=== PATIENT | female | born 1935 | race Caucasian/White ===

== ENCOUNTER 2023-01-28 14:44 | Observation (INO) | payer MEDICARE ==
[~2023-01-28] VITALS: Ht 160 cm; Wt 69.0 kg
[~2023-01-28 14:44] MED LIST: ALBU18HF2 INH; AMLO10TA14 PO; ASCO-139 PO; ASPI-611 PO; BETA1TAB20 PO; CRAN500C4 PO; DOCU100C40 PO; DULO60CA65 PO; ERGO500041 PO; FERR325T32 PO; FLUT1BLS4 IH; FURO40TA4 PO; HYDR-4069 PO; IPRA3AMP31 IH; LEVO150T8 PO; LORA-269 PO; LORA10TA7 PO; MELA10TA3 PO; METO50TA17 PO; MONT-47 PO; MULT-1085 PO; OMEG1CAP46 PO; POTA8TAB69 PO; PRAV40TA3 PO; PRED10TA PO; ZINC50CA2 PO
[2023-01-28 15:22] LABS: ALANINE AMINOTRANSFERASE 26 U/L (12-78); ALBUMIN 2.4 G/DL (3.4-5.0); ALBUMIN/GLOBULIN RATIO 0.5 (1.1-1.5); ALKALINE PHOSPHATASE 60 IU/L (46-116); ANION GAP 10 (8-16); ASPARTATE AMINO TRANSFERASE 40 U/L (10-37); BILIRUBIN,TOTAL 0.6 MG/DL (0.1-1.0); BLOOD UREA NITROGEN 50 MG/DL (7-18); BUN/CREATININE RATIO 16.8 (10.0-20.0); CALCIUM 9.1 MG/DL (8.5-10.1); CHLORIDE 100 MMOL/L (99-107); CREATININE 2.97 MG/DL (0.40-0.90); GLUCOSE 109 MG/DL (70-104); POTASSIUM 3.9 MMOL/L (3.5-5.1); SODIUM 134 MMOL/L (135-145); eCRCL 11 ML/MIN; eGFR 15 ML/MIN
[2023-01-28 15:26] LABS: BASOPHILS # (AUTO) 0.1 X10'3 (0-0.2); BASOPHILS % (AUTO) 0.9 % (0-1); EOSINOPHILS # (AUTO) 0.1 X10'3 (0-0.9); EOSINOPHILS % (AUTO) 0.9 % (0-6); HEMATOCRIT 25.8 % (35.0-45.0); HEMOGLOBIN 8.6 g/dl (12.0-16.0); LYMPHOCYTES # (AUTO) 1.7 X10'3 (1.1-4.8); LYMPHOCYTES % (AUTO) 18.1 % (21-51); MEAN CORPUSCULAR HEMOGLOBIN 32.9 PG (27.0-31.0); MEAN CORPUSCULAR HGB CONC 33.2 g/dL (33.0-36.5); MEAN CORPUSCULAR VOLUME 99.3 FL (78-98); MONOCYTES # (AUTO) 0.9 X10'3 (0-0.9); MONOCYTES % (AUTO) 9.7 % (2-12); NEUTROPHILS # (AUTO) 6.6 X10'3 (1.8-7.7); NEUTROPHILS % (AUTO) 70.4 % (42-75); PLATELET COUNT 284 X10'3 (140-440); RED CELL DISTRIBUTION WIDTH 16.6 % (11.5-14.5); WHITE BLOOD COUNT 9.3 X10'3 (4.5-11.0)
[2023-01-28 15:31] LABS: PRO BRAIN NATRIURETIC PEPTIDE > 30000 PG/ML (0-450)
[2023-01-28 18:24] LABS: BILIRUBIN,URINE NEGATIVE (Neg); CLARITY,URINE CLEAR (Clear); COLOR,URINE YELLOW (Yellow); GLUCOSE, URINE NEGATIVE (Neg); KETONES,URINE NEGATIVE (Neg); LEUKOCYTE ESTERASE ,URINE NEGATIVE (Neg); NITRITES, URINE NEGATIVE (Neg); OCCULT BLOOD,URINE TRACE-INTACT (Neg); PH,URINE 5.5 (4.8-8.0); PROTEIN,URINE >=300 mg/dl (Neg); UROBILINOGEN,URINE 0.2 E.U/dL (0.2-1.0)
[2023-01-28] MEDS ORDERED: albuterol 2.5 MG/3 ML nebule NEB ONE (18:25)
[2023-01-28] MEDS ORDERED: methylPREDNISolone sod succ 125mg/2ml vial IV ONE (18:25)
[2023-01-28 18:26] LABS: UA COLLECTION TYPE CLN CATCH MIDSTREAM
[2023-01-28 18:33] LABS: WBC,URINE 0-4 /HPF (0-4)
[2023-01-28 18:34] LABS: BACTERIA,URINE NONE SEEN /HPF (Neg); SQUAMOUS EPITHELIAL CELL,UR FEW /LPF (FEW)
[2023-01-28 18:49] VITALS: PULSE 54; RESP 18; O2SAT 93
[2023-01-28 18:55] VITALS: PULSE 55; RESP 16
[2023-01-28] MEDS ORDERED: furosemide 10 MG/1 ML 10ml inj IV ONE (19:25)
[2023-01-28] MEDS ORDERED: nitroGLYCERIN 0.2mg/hour patch TD ONE (19:50)
[2023-01-28] MEDS ORDERED: potassium Cl 20 mEq SR tablet PO PRN ×2 (20:10)
[2023-01-28] MEDS ORDERED: acetaminophen 325mg tablet PO PRN (20:10)
[2023-01-28] MEDS ORDERED: ondansetron/PF 4mg/2ml inj IV PRN (20:10)
[2023-01-28] MEDS ORDERED: potassium Cl 40MEQ/1/2NS 520ml 520 ML IV PRN (20:10)
[2023-01-28] MEDS ORDERED: albuterol 2.5 MG/3 ML nebule NEB PRN (20:10)
[2023-01-28] MEDS ORDERED: mag hydrox/Alum hydrox/simeth 30ml oral suspension PO PRN (20:10)
[2023-01-28] MEDS ORDERED: magnesium 4gm in 100ml NS 100 ML IV PRN (20:10)
--- NOTE | 2023-01-28 20:48 | NUR ---
PATIENT HAD IV LASIX PURE WICK PLACED FOR COMFORT
--- NOTE | 2023-01-28 23:11 | NUR ---
patient placed on hospital bed has no needs from rn at this time
[2023-01-28] MEDS: ipratropium/albuterol 3ml nebule NEB PRN (23:29)
[2023-01-28 23:31] VITALS: PULSE 60; RESP 18; O2SAT 95
[2023-01-28 23:38] VITALS: PULSE 59; RESP 16
[2023-01-29] VITALS (11 sets, daily range): BP systolic 126–181; BP diastolic 47–71; PULSE 65–93; RESP 10–21; TEMP 97.5–98.8; O2SAT 92–96
--- NOTE | 2023-01-29 04:19 | NUR ---
patient supine covers on in bed eyes closed rr even un labored no observable respiratory distress at this time
[2023-01-29] MEDS: budesonide 0.5mg/2ml UD nebule IH SCH ×2 (07:35→20:00)
[2023-01-29] MEDS: ipratropium/albuterol 3ml nebule NEB PRN (07:35)
[2023-01-29 07:56] LABS: BASOPHILS % (AUTO) 0.1 % (0-1); EOSINOPHILS % (AUTO) 0.1 % (0-6); LYMPHOCYTES # (AUTO) 0.8 X10'3 (1.1-4.8); LYMPHOCYTES % (AUTO) 15.7 % (21-51); MEAN CORPUSCULAR HGB CONC 32.1 g/dL (33.0-36.5); MEAN PLATELET VOLUME 8.6 FL (7.4-10.4); MONOCYTES # (AUTO) 0.3 X10'3 (0-0.9); MONOCYTES % (AUTO) 6.3 % (2-12); NEUTROPHILS % (AUTO) 77.8 % (42-75); RED CELL DISTRIBUTION WIDTH 17.5 % (11.5-14.5)
[2023-01-29 07:59] LABS: ALANINE AMINOTRANSFERASE 27 U/L (12-78); ALBUMIN 2.3 G/DL (3.4-5.0); ALBUMIN/GLOBULIN RATIO 0.6 (1.1-1.5); ALKALINE PHOSPHATASE 56 IU/L (46-116); ANION GAP 14 (8-16); ASPARTATE AMINO TRANSFERASE 34 U/L (10-37); BILIRUBIN,TOTAL 0.5 MG/DL (0.1-1.0); BLOOD UREA NITROGEN 54 MG/DL (7-18); BUN/CREATININE RATIO 17.4 (10.0-20.0); CALCIUM 8.7 MG/DL (8.5-10.1); CHLORIDE 103 MMOL/L (99-107); CREATININE 3.11 MG/DL (0.40-0.90); GLUCOSE 128 MG/DL (70-104); MAGNESIUM 2.5 MG/DL (1.5-2.4); POTASSIUM 3.8 MMOL/L (3.5-5.1); SODIUM 137 MMOL/L (135-145); TOTAL CARBON DIOXIDE 20.2 MMOL/L (24-32); TOTAL PROTEIN 6.2 G/DL (6.4-8.2); eCRCL 11 ML/MIN; eGFR 14 ML/MIN
[2023-01-29] MEDS: K and/or MAG REPLACEMENT MC SCH ×2 (08:00→20:00)
[2023-01-29] MEDS: docusate sod 100mg capsule PO SCH ×2 (08:00→20:00)
[2023-01-29 08:23] LABS: HEMATOCRIT 24.7 % (35.0-45.0); HEMOGLOBIN 7.9 g/dl (12.0-16.0); MEAN CORPUSCULAR HEMOGLOBIN 31.5 PG (27.0-31.0); MEAN CORPUSCULAR VOLUME 98.2 FL (78-98); PLATELET COUNT 262 X10'3 (140-440); RED BLOOD COUNT 2.52 X10'6 (4.20-5.60); WHITE BLOOD COUNT 5.8 X10'3 (4.5-11.0)
[2023-01-29] MEDS ORDERED: ipratropium/albuterol 3ml nebule IH PRN (10:00)
[2023-01-29] MEDS ORDERED: LISI20TA28 PO (13:57)
[2023-01-29] MEDS: furosemide 40mg/4ml inj IV SCH ×2 (15:25→20:15)
[2023-01-29] MEDS: hyDRALAzine 10mg tablet PO SCH (15:25)
--- NOTE | 2023-01-29 18:29 | NUR ---
Problems reprioritized. Patient report given, questions answered & plan of care reviewed with Gladys Larios RN.
--- NOTE | 2023-01-29 18:30 | NUR ---
Patient in room PCU 3018. I have received report from MORENO ZHAO and had the opportunity to ask questions and assume patient care.
[2023-01-29] MEDS ORDERED: enoxaparin 30mg/0.3ml syringe SQ SCH (20:00)
[2023-01-29] MEDS: metoprolol tartrate 50mg tablet PO SCH (20:14)
[2023-01-30] VITALS (12 sets, daily range): BP systolic 124–181; BP diastolic 55–91; PULSE 60–113; RESP 16–22; TEMP 97–98.7; O2SAT 92–98
--- NOTE | 2023-01-30 00:25 | NUR ---
PAGER ID: [phone] MESSAGE TO : MALIA DOVER [id number],PT WENT INTO AFIB. ECG DONE. MAGDIEL ORTEGA [id number] Addendum: 01/30/23 at 0038 by Magdiel Hernandez RN NO NEW ORDER AT THIS TIME.
[2023-01-30] MEDS: hyDRALAzine 10mg tablet PO SCH ×3 (04:08→16:08)
--- NOTE | 2023-01-30 07:10 | NUR ---
Patient in room PCU 3018. I have received report from MORENO Wade and had the opportunity to ask questions and assume patient care.
[2023-01-30 07:30] LABS: BASOPHILS # (AUTO) 0.1 X10'3 (0-0.2); BASOPHILS % (AUTO) 0.7 % (0-1); EOSINOPHILS # (AUTO) 0.2 X10'3 (0-0.9); EOSINOPHILS % (AUTO) 2.7 % (0-6); HEMATOCRIT 25.6 % (35.0-45.0); HEMOGLOBIN 8.6 g/dl (12.0-16.0); LYMPHOCYTES # (AUTO) 1.7 X10'3 (1.1-4.8); LYMPHOCYTES % (AUTO) 18.5 % (21-51); MEAN CORPUSCULAR HEMOGLOBIN 33.4 PG (27.0-31.0); MEAN CORPUSCULAR HGB CONC 33.6 g/dL (33.0-36.5); MEAN CORPUSCULAR VOLUME 99.4 FL (78-98); MEAN PLATELET VOLUME 8.7 FL (7.4-10.4); MONOCYTES # (AUTO) 0.8 X10'3 (0-0.9); NEUTROPHILS # (AUTO) 6.2 X10'3 (1.8-7.7); NEUTROPHILS % (AUTO) 69.1 % (42-75); PLATELET COUNT 298 X10'3 (140-440); RED BLOOD COUNT 2.58 X10'6 (4.20-5.60); RED CELL DISTRIBUTION WIDTH 16.7 % (11.5-14.5)
[2023-01-30 07:47] LABS: ALANINE AMINOTRANSFERASE 26 U/L (12-78); ALBUMIN 2.2 G/DL (3.4-5.0); ALBUMIN/GLOBULIN RATIO 0.5 (1.1-1.5); ALKALINE PHOSPHATASE 54 IU/L (46-116); ANION GAP 10 (8-16); ASPARTATE AMINO TRANSFERASE 30 U/L (10-37); BILIRUBIN,TOTAL 0.5 MG/DL (0.1-1.0); BLOOD UREA NITROGEN 59 MG/DL (7-18); BUN/CREATININE RATIO 18.6 (10.0-20.0); CALCIUM 8.9 MG/DL (8.5-10.1); CHLORIDE 103 MMOL/L (99-107); CREATININE 3.17 MG/DL (0.40-0.90); GLUCOSE 88 MG/DL (70-104); MAGNESIUM 2.3 MG/DL (1.5-2.4); POTASSIUM 3.6 MMOL/L (3.5-5.1); SODIUM 138 MMOL/L (135-145); TOTAL CARBON DIOXIDE 25.3 MMOL/L (24-32); TOTAL PROTEIN 6.6 G/DL (6.4-8.2); eCRCL 11 ML/MIN; eGFR 14 ML/MIN
[2023-01-30] MEDS: budesonide 0.5mg/2ml UD nebule IH SCH ×2 (07:54→19:48)
[2023-01-30] MEDS: K and/or MAG REPLACEMENT MC SCH ×2 (08:00→20:00)
[2023-01-30] MEDS ORDERED: Melatonin 3mg tablet PO PRN ×2 (08:40→09:50)
[2023-01-30] MEDS: furosemide 40mg/4ml inj IV SCH ×2 (09:41→20:09)
[2023-01-30] MEDS: ferrous sulfate 325mg tablet PO SCH (09:46)
[2023-01-30] MEDS: apixaban 2.5mg tablet PO SCH ×2 (09:47→20:34)
[2023-01-30] MEDS: levoTHYROXINE 75mcg tablet PO SCH (09:47)
[2023-01-30] MEDS: pravastatin 40mg tablet PO SCH (09:47)
[2023-01-30] MEDS: metoprolol tartrate 50mg tablet PO SCH ×2 (09:47→20:35)
[2023-01-30] MEDS: aspirin 81mg, enteric-coated 1 TAB TABLET.DR PO SCH (09:48)
[2023-01-30] MEDS: montelukast 10mg tablet PO SCH (09:48)
[2023-01-30] MEDS: amLODIPine 5mg tablet PO SCH (09:49)
[2023-01-30] MEDS ORDERED: docusate sod 100mg capsule PO PRN (09:50)
--- NOTE | 2023-01-30 19:00 | NUR ---
Problems reprioritized. Patient report given, questions answered & plan of care reviewed with BRANDON Pollock & MORENO Delgado.
[2023-01-30] MEDS: ipratropium 0.5 MG/2.5ML nebule IH SCH (19:48)
[2023-01-30] MEDS: simethicone 80mg chew tab PO SCH (21:46)
[2023-01-31] VITALS (8 sets, daily range): BP systolic 99–158; BP diastolic 66–81; PULSE 54–96; RESP 15–19; TEMP 97.1–98; O2SAT 93–97
[2023-01-31] MEDS: hyDRALAzine 10mg tablet PO SCH ×3 (00:21→15:36)
--- NOTE | 2023-01-31 06:30 | NUR ---
Patient in room PCU 3018. I have received report from BRANDON Pollock & MORENO Delgado and had the opportunity to ask questions and assume patient care.
[2023-01-31] MEDS: amLODIPine 5mg tablet PO SCH (07:18)
[2023-01-31] MEDS: metoprolol tartrate 50mg tablet PO SCH (07:18)
[2023-01-31] MEDS: furosemide 40mg/4ml inj IV SCH (07:18)
[2023-01-31] MEDS: K and/or MAG REPLACEMENT MC SCH (08:00)
[2023-01-31 08:01] LABS: BASOPHILS # (AUTO) 0.1 X10'3 (0-0.2); BASOPHILS % (AUTO) 0.8 % (0-1); EOSINOPHILS # (AUTO) 0.3 X10'3 (0-0.9); EOSINOPHILS % (AUTO) 2.9 % (0-6); HEMATOCRIT 29.7 % (35.0-45.0); HEMOGLOBIN 10.1 g/dl (12.0-16.0); LYMPHOCYTES # (AUTO) 1.9 X10'3 (1.1-4.8); LYMPHOCYTES % (AUTO) 20.9 % (21-51); MEAN CORPUSCULAR HEMOGLOBIN 33.5 PG (27.0-31.0); MEAN CORPUSCULAR HGB CONC 33.8 g/dL (33.0-36.5); MEAN CORPUSCULAR VOLUME 99.1 FL (78-98); MEAN PLATELET VOLUME 8.4 FL (7.4-10.4); MONOCYTES # (AUTO) 0.8 X10'3 (0-0.9); MONOCYTES % (AUTO) 8.8 % (2-12); NEUTROPHILS % (AUTO) 66.6 % (42-75); PLATELET COUNT 372 X10'3 (140-440); RED CELL DISTRIBUTION WIDTH 16.8 % (11.5-14.5)
[2023-01-31] MEDS: ipratropium 0.5 MG/2.5ML nebule IH SCH (08:12)
[2023-01-31] MEDS: budesonide 0.5mg/2ml UD nebule IH SCH (08:12)
[2023-01-31 08:29] LABS: ALANINE AMINOTRANSFERASE 24 U/L (12-78); ALBUMIN 2.3 G/DL (3.4-5.0); ALBUMIN/GLOBULIN RATIO 0.5 (1.1-1.5); ALKALINE PHOSPHATASE 62 IU/L (46-116); ANION GAP 10 (8-16); ASPARTATE AMINO TRANSFERASE 31 U/L (10-37); BILIRUBIN,TOTAL 0.6 MG/DL (0.1-1.0); BLOOD UREA NITROGEN 58 MG/DL (7-18); BUN/CREATININE RATIO 17.4 (10.0-20.0); CHLORIDE 100 MMOL/L (99-107); CREATININE 3.34 MG/DL (0.40-0.90); FREE T4 (FREE THYROXINE) 1.07 NG/DL (0.73-1.40); GLUCOSE 90 MG/DL (70-104); MAGNESIUM 2.2 MG/DL (1.5-2.4); POTASSIUM 3.6 MMOL/L (3.5-5.1); SODIUM 137 MMOL/L (135-145); THYROID STIMULATING HORMONE 25.04 ulU/ml (0.34-4.50); TOTAL CARBON DIOXIDE 26.7 MMOL/L (24-32); TOTAL PROTEIN 7.4 G/DL (6.4-8.2); eCRCL 10 ML/MIN; eGFR 13 ML/MIN
[2023-01-31 09:21] LABS: RHEUM FACTOR QUAL REFLEX TITER NEGATIVE (Neg)
[2023-01-31] MEDS: ferrous sulfate 325mg tablet PO SCH (10:38)
[2023-01-31] MEDS: aspirin 81mg, enteric-coated 1 TAB TABLET.DR PO SCH (10:39)
[2023-01-31] MEDS: levoTHYROXINE 75mcg tablet PO SCH (10:39)
[2023-01-31] MEDS: pravastatin 40mg tablet PO SCH (10:39)
[2023-01-31] MEDS: montelukast 10mg tablet PO SCH (10:39)
[2023-01-31] MEDS: apixaban 2.5mg tablet PO SCH (10:39)
[2023-01-31] MEDS: simethicone 80mg chew tab PO SCH ×2 (10:43→13:56)
[2023-01-31] MEDS ORDERED: FURO40TA4 PO (13:08)
--- NOTE | 2023-01-31 16:30 | NUR ---
DC inst provided to pt. IV DC'd, tip intact. All belongings sent w/pt. WC to vehicle.
[2023-02-02 15:48] LABS: ANTINUCLEAR ANTIBODIES Negative (Negative); COMPLEMENT C3, SERUM 221 mg/dL (82-167); COMPLEMENT C4, SERUM 32 mg/dL (12-38)
[2023-02-03 09:47] LABS: A/G RATIO 0.6 (0.7-1.7); ALBUMIN 2.6 g/dL (2.9-4.4); ALPHA-1-GLOBULIN 0.4 g/dL (0.0-0.4); ALPHA-2-GLOBULIN 1.4 g/dL (0.4-1.0); GAMMA GLOBULIN 1.5 g/dL (0.4-1.8); GLOBULIN, TOTAL 4.2 g/dL (2.2-3.9); HBSAG SCREEN Negative (Negative); M-SPIKE 0.4 g/dL (Not Observed); PROTEIN, TOTAL, SERUM 6.8 g/dL (6.0-8.5)
== END 2023-01-31 16:30 | disposition home health service (06) ==
LOC: ER 14:46 → ED HOLD 20:17 → INTOOBSV 20:17 → PCU 3S 01-29 07:25
PROVIDERS: ADMIT Family Medicine; ATTEND Internal Medicine
DX: J44.1 Chronic obstructive pulmonary disease with (acute) exacerbation (principal); J96.01 Acute respiratory failure with hypoxia; I13.0 Hypertensive heart and chronic kidney disease with heart failure and stage 1 through stage 4 chronic kidney disease, or unspecified chronic kidney disease; I50.32 Chronic diastolic (congestive) heart failure; N18.4 Chronic kidney disease, stage 4 (severe); D63.1 Anemia in chronic kidney disease; E78.5 Hyperlipidemia, unspecified; E87.6 Hypokalemia; E87.1 Hypo-osmolality and hyponatremia; H53.2 Diplopia; R31.29 Other microscopic hematuria; I27.20 Pulmonary hypertension, unspecified; Z96.652 Presence of left artificial knee joint; Z86.16 Personal history of COVID-19; Z90.710 Acquired absence of both cervix and uterus; Z93.3 Colostomy status; Z79.899 Other long term (current) drug therapy
CPT/HCPCS: 36415; 71045; 71250; 80053; 81001; 83735; 83880; 84155; 84165; 84439; 84443; 84484; 85025; 85651; 86038; 86160; 86430; 87081; 87340; 93005; 93975; 94640; 94760; 96372; 96374; 96375; 96376; 97161; 97530; 99285; G0378; J1650; J1940; J2930; A4615

== ENCOUNTER 2023-03-30 08:49 | Inpatient (IN) | payer MEDICARE ==
[~2023-03-30] VITALS: Ht 162.6 cm; Wt 68.2 kg
[2023-03-30] VITALS (8 sets, daily range): BP systolic 161–178; BP diastolic 51–64; PULSE 58–64; RESP 14–22; TEMP 97.6–99.3; O2SAT 90–95
[~2023-03-30 08:49] MED LIST changes: -AMLO10TA14 PO; -BETA1TAB20 PO; -FLUT1BLS4 IH; +LISI20TA28 PO; -LORA-269 PO; -LORA10TA7 PO; -POTA8TAB69 PO; -PRED10TA PO
[2023-03-30 09:39] LABS: BASOPHILS # (AUTO) 0.1 X10'3 (0-0.2); BASOPHILS % (AUTO) 0.6 % (0-1); EOSINOPHILS # (AUTO) 0.1 X10'3 (0-0.9); EOSINOPHILS % (AUTO) 1.2 % (0-6); HEMATOCRIT 24.5 % (35.0-45.0); HEMOGLOBIN 8.1 g/dl (12.0-16.0); LYMPHOCYTES # (AUTO) 0.8 X10'3 (1.1-4.8); LYMPHOCYTES % (AUTO) 8.4 % (21-51); MEAN CORPUSCULAR HEMOGLOBIN 34.8 PG (27.0-31.0); MEAN CORPUSCULAR HGB CONC 33.3 g/dL (33.0-36.5); MEAN CORPUSCULAR VOLUME 104.6 FL (78-98); MEAN PLATELET VOLUME 8.2 FL (7.4-10.4); MONOCYTES % (AUTO) 9.8 % (2-12); NEUTROPHILS # (AUTO) 7.8 X10'3 (1.8-7.7); PLATELET COUNT 291 X10'3 (140-440); RED BLOOD COUNT 2.34 X10'6 (4.20-5.60); RED CELL DISTRIBUTION WIDTH 14.7 % (11.5-14.5); WHITE BLOOD COUNT 9.7 X10'3 (4.5-11.0)
[2023-03-30] MEDS ORDERED: ipratropium/albuterol 3ml nebule NEB ONE (09:45)
[2023-03-30 09:55] LABS: ALANINE AMINOTRANSFERASE 23 U/L (12-78); ALBUMIN 2.5 G/DL (3.4-5.0); ALBUMIN/GLOBULIN RATIO 0.5 (1.1-1.5); ALKALINE PHOSPHATASE 64 IU/L (46-116); ANION GAP 10 (8-16); ASPARTATE AMINO TRANSFERASE 34 U/L (10-37); BILIRUBIN,TOTAL 0.5 MG/DL (0.1-1.0); BLOOD UREA NITROGEN 54 MG/DL (7-18); BUN/CREATININE RATIO 14.8 (10.0-20.0); CALCIUM 9.3 MG/DL (8.5-10.1); CHLORIDE 102 MMOL/L (99-107); CREATININE 3.64 MG/DL (0.40-0.90); GLUCOSE 106 MG/DL (70-104); SODIUM 138 MMOL/L (135-145); TOTAL CARBON DIOXIDE 26.5 MMOL/L (24-32); TOTAL PROTEIN 7.2 G/DL (6.4-8.2); eCRCL 10 ML/MIN; eGFR 12 ML/MIN
[2023-03-30 10:02] LABS: PRO BRAIN NATRIURETIC PEPTIDE 26304 PG/ML (0-450)
[2023-03-30 10:03] LABS: POTASSIUM 4.1 MMOL/L (3.5-5.1)
[2023-03-30 10:17] LABS: BILIRUBIN,URINE NEGATIVE (Neg); CLARITY,URINE CLEAR (Clear); COLOR,URINE STRAW (Yellow); GLUCOSE, URINE NEGATIVE (Neg); KETONES,URINE NEGATIVE (Neg); LEUKOCYTE ESTERASE ,URINE NEGATIVE (Neg); NITRITES, URINE NEGATIVE (Neg); OCCULT BLOOD,URINE TRACE-INTACT (Neg); PH,URINE 7.5 (4.8-8.0); PROTEIN,URINE 100 mg/dl (Neg); UROBILINOGEN,URINE 0.2 E.U/dL (0.2-1.0)
[2023-03-30 10:25] LABS: UA COLLECTION TYPE CLN CATCH MIDSTREAM
[2023-03-30 10:35] LABS: BACTERIA,URINE NONE SEEN /HPF (Neg); RBC,URINE 0-2 /HPF (0-2); SQUAMOUS EPITHELIAL CELL,UR FEW /LPF (FEW); TRANSITIONAL EPI CELLS,URINE FEW /HPF; WBC,URINE 0-4 /HPF (0-4)
[2023-03-30] MEDS ORDERED: furosemide 10 MG/1 ML 10ml inj IV ONE (11:05)
[2023-03-30 11:20] LABS: LIPASE 28 U/L (16-77)
[2023-03-30] MEDS ORDERED: GEMF600T89 PO (11:33)
[2023-03-30] MEDS ORDERED: FENO145T38 PO (11:33)
--- NOTE | 2023-03-30 11:45 | NUR ---
Hospitalist at bedside with patient.
[2023-03-30] MEDS ORDERED: magnesium 4gm in 100ml NS 100 ML IV PRN (11:55)
[2023-03-30] MEDS ORDERED: potassium Cl 40MEQ/1/2NS 520ml 520 ML IV PRN (11:55)
[2023-03-30] MEDS ORDERED: acetaminophen 325mg tablet PO PRN (11:55)
[2023-03-30] MEDS ORDERED: PERFLUTREN PROTEIN-A MICROSPHR (Optison) 0.22 MG/ML 3ML VIAL IV ONE (11:55)
[2023-03-30] MEDS ORDERED: potassium Cl 20 mEq SR tablet PO PRN ×2 (11:55)
[2023-03-30] MEDS ORDERED: ondansetron/PF 4mg/2ml inj IV PRN (11:55)
[2023-03-30] MEDS ORDERED: mag hydrox/Alum hydrox/simeth 30ml oral suspension PO PRN (11:55)
[2023-03-30] MEDS ORDERED: ergocalciferol (vit D2) capsule 50,000 UNITS (1,250mcg) CAPSULE PO SCH (11:55)
[2023-03-30] MEDS ORDERED: magnesium hydroxide 30ml (MOM) UD suspension PO PRN (11:55)
[2023-03-30] MEDS ORDERED: ipratropium/albuterol 3ml nebule IH PRN (11:55)
[2023-03-30] MEDS ORDERED: magnesium Cl slow-release 64mg tablet PO PRN (11:55)
--- NOTE | 2023-03-30 12:00 | NUR ---
Patient up to bedside commode, steady. SOB after exertion. 200mL urine out.
[2023-03-30] MEDS ORDERED: AMLO10TA13 PO (12:47)
[2023-03-30] MEDS ORDERED: POTA8TAB69 PO (12:47)
[2023-03-30] MEDS ORDERED: FLUT1BLS4 IH (12:47)
[2023-03-30] MEDS ORDERED: VIT1CAPS46 PO (12:47)
[2023-03-30] MEDS ORDERED: LORA10TA7 PO (12:47)
[2023-03-30] MEDS ORDERED: FLUT16SP11 BOTHNARES (12:47)
[2023-03-30] MEDS: fenofibrate 145mg tablet PO SCH ×2 (13:00→19:38)
--- NOTE | 2023-03-30 13:27 | NUR ---
Patient in room PCU 3015B. I have received report from MORENO CERNA and had the opportunity to ask questions and assume patient care.
--- NOTE | 2023-03-30 18:18 | NUR ---
Problems reprioritized. Patient report given, questions answered & plan of care reviewed with BRANDON AUGUSTINE.
[2023-03-30] MEDS: docusate sod 100mg capsule PO SCH (19:36)
[2023-03-30] MEDS: metoprolol tartrate 50mg tablet PO SCH (19:38)
[2023-03-30] MEDS: heparin, porcine 5000 units/ml vial SQ SCH (19:39)
[2023-03-30] MEDS ORDERED: ipratropium/albuterol 3ml nebule NEB PRN (20:10)
[2023-03-30] MEDS ORDERED: NYSTATIN 30 GM POWDER TP SCH (21:00)
[2023-03-30] MEDS: temazepam 15mg capsule PO PRN (22:04)
[2023-03-30] MEDS: nystatin 15 GM powder TP SCH (22:04)
[2023-03-31] VITALS (9 sets, daily range): BP systolic 150–162; BP diastolic 51–80; PULSE 58–63; RESP 13–18; TEMP 98–98.4; O2SAT 93–98
--- NOTE | 2023-03-31 03:29 | NUR ---
LEAFLET OR NEWSPAPER DELIVERER documentation: I have reviewed and agree with all interventions, assessments performed and documented by HELEN TAYLOR.
--- NOTE | 2023-03-31 06:33 | NUR ---
Patient in room PCU 3015. I have received report from MORENO Edmonds and had the opportunity to ask questions and assume patient care.
[2023-03-31 06:51] LABS: BASOPHILS # (AUTO) 0.1 X10'3 (0-0.2); BASOPHILS % (AUTO) 0.8 % (0-1); EOSINOPHILS # (AUTO) 0.1 X10'3 (0-0.9); EOSINOPHILS % (AUTO) 1.8 % (0-6); HEMATOCRIT 23.4 % (35.0-45.0); HEMOGLOBIN 7.9 g/dl (12.0-16.0); LYMPHOCYTES % (AUTO) 12.9 % (21-51); MEAN CORPUSCULAR HEMOGLOBIN 35.1 PG (27.0-31.0); MEAN CORPUSCULAR HGB CONC 33.6 g/dL (33.0-36.5); MEAN CORPUSCULAR VOLUME 104.6 FL (78-98); MEAN PLATELET VOLUME 8.5 FL (7.4-10.4); MONOCYTES # (AUTO) 0.9 X10'3 (0-0.9); NEUTROPHILS % (AUTO) 73.5 % (42-75); PLATELET COUNT 280 X10'3 (140-440); RED BLOOD COUNT 2.24 X10'6 (4.20-5.60); RED CELL DISTRIBUTION WIDTH 14.7 % (11.5-14.5); WHITE BLOOD COUNT 8.1 X10'3 (4.5-11.0)
[2023-03-31] MEDS: lisinopril 20mg tablet PO SCH (07:36)
[2023-03-31] MEDS: pravastatin 40mg tablet PO SCH (07:37)
[2023-03-31] MEDS: ascorbic acid 500mg tablet PO SCH (07:37)
[2023-03-31] MEDS: multivitamins, therapeutics tablet PO SCH (07:37)
[2023-03-31] MEDS: gemfibrozil 600mg tablet PO SCH (07:37)
[2023-03-31] MEDS: OMEGA-3/DHA/EPA/FISH OIL 1 EACH CAPSULE.DR PO SCH (07:37)
[2023-03-31] MEDS: aspirin 81mg, enteric-coated 1 TAB TABLET.DR PO SCH (07:37)
[2023-03-31] MEDS: metoprolol tartrate 50mg tablet PO SCH ×2 (07:38→19:12)
[2023-03-31] MEDS: docusate sod 100mg capsule PO SCH ×2 (07:38→19:12)
[2023-03-31 07:39] LABS: ALANINE AMINOTRANSFERASE 18 U/L (12-78); ALBUMIN 2.2 G/DL (3.4-5.0); ALBUMIN/GLOBULIN RATIO 0.5 (1.1-1.5); ALKALINE PHOSPHATASE 46 IU/L (46-116); ANION GAP 10 (8-16); ASPARTATE AMINO TRANSFERASE 23 U/L (10-37); BILIRUBIN,TOTAL 0.7 MG/DL (0.1-1.0); BLOOD UREA NITROGEN 49 MG/DL (7-18); CALCIUM 9.1 MG/DL (8.5-10.1); CHLORIDE 103 MMOL/L (99-107); GLUCOSE 88 MG/DL (70-104); MAGNESIUM 2.4 MG/DL (1.5-2.4); PHOSPHORUS 3.8 MG/DL (2.3-4.5); POTASSIUM 3.7 MMOL/L (3.5-5.1); SODIUM 136 MMOL/L (135-145); TOTAL CARBON DIOXIDE 23.2 MMOL/L (24-32); TOTAL PROTEIN 6.7 G/DL (6.4-8.2); eCRCL 10 ML/MIN; eGFR 12 ML/MIN
[2023-03-31] MEDS: heparin, porcine 5000 units/ml vial SQ SCH ×2 (07:39→19:13)
[2023-03-31] MEDS: levoTHYROXINE 75mcg tablet PO SCH (07:40)
[2023-03-31] MEDS: fenofibrate 145mg tablet PO SCH ×3 (07:42→18:07)
[2023-03-31] MEDS ORDERED: non-formulary drug (Cranberry Extract (Cranberry) 1 CAP) PO SCH (08:00)
[2023-03-31] MEDS ORDERED: Fluticasone/Umeclidin/Vilanter (Trelegy Ellipta 100-62.5-25) IH SCH (08:00)
[2023-03-31] MEDS ORDERED: non-formulary drug (Zinc Acetate (Galzin) 1 CAP) PO SCH (08:00)
[2023-03-31] MEDS ORDERED: furosemide 40mg/4ml inj IV SCH (08:00)
[2023-03-31] MEDS: nystatin 15 GM powder TP SCH ×3 (09:47→19:13)
[2023-03-31] MEDS: duloxetine 30mg CAPSULE.DR PO SCH (11:03)
[2023-03-31] MEDS ORDERED: BUDE10.7 PO (11:28)
--- NOTE | 2023-03-31 13:06 | NUR ---
Student documentation: I have reviewed and agree with assessment performed and documented by LIZETTE FLEMING .
--- NOTE | 2023-03-31 18:16 | NUR ---
Problems reprioritized. Patient report given, questions answered & plan of care reviewed with Grey MAYER.
[2023-03-31] MEDS: temazepam 15mg capsule PO PRN (20:56)
[2023-03-31] MEDS: furosemide 40mg/4ml inj IV SCH (21:40)
[2023-04-01] VITALS: BP 108/86; PULSE 57; RESP 16; TEMP 97; O2SAT 92
[2023-04-01 07:00] VITALS: BP 163/75; PULSE 59; RESP 19; TEMP 97.7; O2SAT 92
[2023-04-01] MEDS: gemfibrozil 600mg tablet PO SCH (07:54)
[2023-04-01] MEDS: OMEGA-3/DHA/EPA/FISH OIL 1 EACH CAPSULE.DR PO SCH (07:54)
[2023-04-01] MEDS: levoTHYROXINE 75mcg tablet PO SCH (07:54)
[2023-04-01] MEDS: duloxetine 30mg CAPSULE.DR PO SCH (07:54)
[2023-04-01] MEDS: pravastatin 40mg tablet PO SCH (07:54)
[2023-04-01] MEDS: aspirin 81mg, enteric-coated 1 TAB TABLET.DR PO SCH (07:54)
[2023-04-01] MEDS: lisinopril 20mg tablet PO SCH (07:55)
[2023-04-01] MEDS: fenofibrate 145mg tablet PO SCH ×2 (07:55→13:00)
[2023-04-01] MEDS: docusate sod 100mg capsule PO SCH (07:55)
[2023-04-01] MEDS: metoprolol tartrate 50mg tablet PO SCH (07:55)
[2023-04-01] MEDS: ascorbic acid 500mg tablet PO SCH (07:56)
[2023-04-01] MEDS: multivitamins, therapeutics tablet PO SCH (07:56)
[2023-04-01] MEDS: heparin, porcine 5000 units/ml vial SQ SCH (07:56)
[2023-04-01] MEDS: nystatin 15 GM powder TP SCH ×2 (08:03→13:00)
[2023-04-01] MEDS: furosemide 40mg/4ml inj IV SCH (09:01)
[2023-04-01 09:29] LABS: BASOPHILS # (AUTO) 0.1 X10'3 (0-0.2); BASOPHILS % (AUTO) 1.2 % (0-1); EOSINOPHILS # (AUTO) 0.3 X10'3 (0-0.9); EOSINOPHILS % (AUTO) 3.7 % (0-6); HEMATOCRIT 26.5 % (35.0-45.0); HEMOGLOBIN 8.9 g/dl (12.0-16.0); LYMPHOCYTES # (AUTO) 1.3 X10'3 (1.1-4.8); LYMPHOCYTES % (AUTO) 14.2 % (21-51); MEAN CORPUSCULAR HGB CONC 33.5 g/dL (33.0-36.5); MEAN CORPUSCULAR VOLUME 104.5 FL (78-98); MEAN PLATELET VOLUME 8.5 FL (7.4-10.4); MONOCYTES # (AUTO) 0.9 X10'3 (0-0.9); MONOCYTES % (AUTO) 9.7 % (2-12); NEUTROPHILS # (AUTO) 6.6 X10'3 (1.8-7.7); NEUTROPHILS % (AUTO) 71.2 % (42-75); PLATELET COUNT 331 X10'3 (140-440); RED BLOOD COUNT 2.54 X10'6 (4.20-5.60); RED CELL DISTRIBUTION WIDTH 14.5 % (11.5-14.5); WHITE BLOOD COUNT 9.2 X10'3 (4.5-11.0)
[2023-04-01 10:06] LABS: ALBUMIN 2.4 G/DL (3.4-5.0); ALBUMIN/GLOBULIN RATIO 0.5 (1.1-1.5); ALKALINE PHOSPHATASE 54 IU/L (46-116); ANION GAP 10 (8-16); ASPARTATE AMINO TRANSFERASE 22 U/L (10-37); BILIRUBIN,TOTAL 0.6 MG/DL (0.1-1.0); BLOOD UREA NITROGEN 56 MG/DL (7-18); BUN/CREATININE RATIO 16.1 (10.0-20.0); CALCIUM 9.4 MG/DL (8.5-10.1); CHLORIDE 100 MMOL/L (99-107); CREATININE 3.48 MG/DL (0.40-0.90); GLUCOSE 101 MG/DL (70-104); MAGNESIUM 2.4 MG/DL (1.5-2.4); PHOSPHORUS 3.7 MG/DL (2.3-4.5); POTASSIUM 3.6 MMOL/L (3.5-5.1); SODIUM 135 MMOL/L (135-145); TOTAL CARBON DIOXIDE 24.6 MMOL/L (24-32); TOTAL PROTEIN 7.6 G/DL (6.4-8.2); eCRCL 10 ML/MIN; eGFR 12 ML/MIN
[2023-04-01 10:07] LABS: ALANINE AMINOTRANSFERASE < 6 U/L (12-78)
[2023-04-01] MEDS ORDERED: FURO20TA4 PO (10:51)
[2023-04-01 11:00] VITALS: BP 129/75; PULSE 51; RESP 18; TEMP 97.2; O2SAT 94
[2023-04-01 11:11] VITALS: PULSE 57; RESP 16; O2SAT 96
--- NOTE | 2023-04-01 14:25 | NUR ---
Patient discharged home with all belongings and discharge instructions. IV removed and tele monitor removed and returned to telephone quotation clerk. Escorted out via wheel chair and left in private vehicle
[2023-04-05] MEDS ORDERED: ergocalciferol (vit D2) capsule 50,000 UNITS (1,250mcg) CAPSULE PO SCH (12:20)
== END 2023-04-01 14:25 | disposition home health service (06) | DRG 291 ==
LOC: ER 08:49 → ED HOLD 12:07 → PCU 3S 13:45
PROVIDERS: ADMIT Family Medicine; ATTEND Family Medicine
DX: I13.0 Hypertensive heart and chronic kidney disease with heart failure and stage 1 through stage 4 chronic kidney disease, or unspecified chronic kidney disease (principal); I50.33 Acute on chronic diastolic (congestive) heart failure; J96.01 Acute respiratory failure with hypoxia; N18.4 Chronic kidney disease, stage 4 (severe); N17.9 Acute kidney failure, unspecified; J44.9 Chronic obstructive pulmonary disease, unspecified; Z66 Do not resuscitate; E11.22 Type 2 diabetes mellitus with diabetic chronic kidney disease; Z20.822 Contact with and (suspected) exposure to COVID-19; E03.9 Hypothyroidism, unspecified; D64.9 Anemia, unspecified; Z96.652 Presence of left artificial knee joint; E78.5 Hyperlipidemia, unspecified; Z86.16 Personal history of COVID-19; Z99.81 Dependence on supplemental oxygen; Z79.82 Long term (current) use of aspirin; Z79.899 Other long term (current) drug therapy; Z90.710 Acquired absence of both cervix and uterus; Z90.49 Acquired absence of other specified parts of digestive tract
CPT/HCPCS: 36415; 71045; 80053; 81001; 83605; 83690; 83735; 83880; 84100; 84484; 85025; 87040; 87081; 87502; 87503; 87811; 93306; 94640; 94760; 97110; 97161; 97530; 99285; G0378; J1644; J1940

== ENCOUNTER 2023-04-24 16:21 | Inpatient (IN) | payer MEDICARE ==
[~2023-04-24] VITALS: Ht 162.6 cm; Wt 69.1 kg
[~2023-04-24 16:21] MED LIST changes: -ASCO-139 PO; +BUDE10.7 PO; -CRAN500C4 PO; -DOCU100C40 PO; +FENO145T38 PO; -FERR325T32 PO; +FLUT16SP11 BOTHNARES; +FLUT1BLS4 IH; +FURO20TA4 PO; -FURO40TA4 PO; +POTA8TAB69 PO; +VIT1CAPS46 PO; -ZINC50CA2 PO
[2023-04-24 19:24] LABS: BASOPHILS # (AUTO) 0.1 X10'3 (0-0.2); BASOPHILS % (AUTO) 0.9 % (0-1); EOSINOPHILS # (AUTO) 0.3 X10'3 (0-0.9); EOSINOPHILS % (AUTO) 3.9 % (0-6); HEMATOCRIT 31.1 % (35.0-45.0); HEMOGLOBIN 9.9 g/dl (12.0-16.0); LYMPHOCYTES # (AUTO) 1.3 X10'3 (1.1-4.8); MEAN CORPUSCULAR HEMOGLOBIN 34.9 PG (27.0-31.0); MEAN CORPUSCULAR HGB CONC 31.9 g/dL (33.0-36.5); MEAN CORPUSCULAR VOLUME 109.2 FL (78-98); MEAN PLATELET VOLUME 8.9 FL (7.4-10.4); MONOCYTES # (AUTO) 0.7 X10'3 (0-0.9); MONOCYTES % (AUTO) 9.3 % (2-12); NEUTROPHILS # (AUTO) 4.8 X10'3 (1.8-7.7); NEUTROPHILS % (AUTO) 67.9 % (42-75); PLATELET COUNT 309 X10'3 (140-440); RED BLOOD COUNT 2.85 X10'6 (4.20-5.60); RED CELL DISTRIBUTION WIDTH 19.2 % (11.5-14.5); WHITE BLOOD COUNT 7.1 X10'3 (4.5-11.0)
[2023-04-24 19:27] LABS: ALANINE AMINOTRANSFERASE 25 U/L (12-78); ALBUMIN 2.5 G/DL (3.4-5.0); ALBUMIN/GLOBULIN RATIO 0.6 (1.1-1.5); ALKALINE PHOSPHATASE 64 IU/L (46-116); ANION GAP 12 (8-16); ASPARTATE AMINO TRANSFERASE 37 U/L (10-37); BILIRUBIN,TOTAL 0.6 MG/DL (0.1-1.0); BLOOD UREA NITROGEN 82 MG/DL (7-18); CHLORIDE 107 MMOL/L (99-107); CREATININE 3.57 MG/DL (0.40-0.90); GLUCOSE 95 MG/DL (70-104); SODIUM 140 MMOL/L (135-145); TOTAL CARBON DIOXIDE 20.9 MMOL/L (24-32); TOTAL PROTEIN 6.8 G/DL (6.4-8.2); eCRCL 10 ML/MIN; eGFR 12 ML/MIN
[2023-04-24] MEDS ORDERED: cloNIDine 0.1 mg tablet PO ONE (20:00)
[2023-04-24 20:34] LABS: PRO BRAIN NATRIURETIC PEPTIDE > 30000 PG/ML (0-450)
[2023-04-24] MEDS ORDERED: aspirin 325mg tablet PO ONE (20:55)
[2023-04-24] MEDS ORDERED: nitroGLYCERIN 1gm ointment UD TP ONE (20:55)
[2023-04-24 21:00] LABS: ANISOCYTOSIS 2+; PLATELET ESTIMATE NORMAL
[2023-04-24] MEDS ORDERED: temazepam 15mg capsule PO PRN (21:00)
[2023-04-24] MEDS ORDERED: heparin 10,000 units/1 ML INJ IV ONE (21:05)
[2023-04-24] MEDS ORDERED: heparin 10,000 units/1 ML INJ IV PRN (21:05)
[2023-04-24 21:30] LABS: APTT 36 SECONDS (22-32); INR 1.1 INR; PROTHROMBIN TIME 12.2 SECONDS (9.0-12.0)
--- NOTE | 2023-04-24 21:37 | NUR ---
chata monroe mohan of pts hr in the 50s. per md hold the catapres due to low hr. give the nitro as ordered.
[2023-04-24 21:56] LABS: BASOPHILS # (AUTO) 0.1 X10'3 (0-0.2); EOSINOPHILS # (AUTO) 0.3 X10'3 (0-0.9); EOSINOPHILS % (AUTO) 4.5 % (0-6); HEMATOCRIT 29.7 % (35.0-45.0); HEMOGLOBIN 9.5 g/dl (12.0-16.0); LYMPHOCYTES # (AUTO) 1.4 X10'3 (1.1-4.8); LYMPHOCYTES % (AUTO) 19.1 % (21-51); MEAN CORPUSCULAR HGB CONC 32.1 g/dL (33.0-36.5); MEAN PLATELET VOLUME 8.9 FL (7.4-10.4); MONOCYTES # (AUTO) 0.8 X10'3 (0-0.9); MONOCYTES % (AUTO) 10.9 % (2-12); NEUTROPHILS # (AUTO) 4.9 X10'3 (1.8-7.7); NEUTROPHILS % (AUTO) 64.5 % (42-75); PLATELET COUNT 270 X10'3 (140-440); RED BLOOD COUNT 2.73 X10'6 (4.20-5.60); RED CELL DISTRIBUTION WIDTH 19.6 % (11.5-14.5); WHITE BLOOD COUNT 7.6 X10'3 (4.5-11.0)
[2023-04-24] MEDS ORDERED: ipratropium/albuterol 3ml nebule NEB PRN (22:00)
[2023-04-24] MEDS ORDERED: acetaminophen 650mg rectal suppository RC PRN (22:00)
[2023-04-24] MEDS ORDERED: bisacodyl 10mg suppository rectal RC PRN (22:00)
[2023-04-24] MEDS ORDERED: ondansetron/PF 4mg/2ml inj IV PRN (22:00)
[2023-04-24] MEDS ORDERED: ondansetron 4mg rapidly disintigrating tab PO PRN (22:00)
[2023-04-24] MEDS ORDERED: mag hydrox/Alum hydrox/simeth 30ml oral suspension PO PRN (22:00)
[2023-04-24] MEDS ORDERED: acetaminophen 325mg tablet PO PRN ×2 (22:00)
[2023-04-24] MEDS ORDERED: diphenhydrAMINE 25mg capsule PO PRN (22:00)
[2023-04-24] MEDS ORDERED: magnesium hydroxide 30ml (MOM) UD suspension PO PRN (22:00)
[2023-04-24] MEDS ORDERED: diphenhydrAMINE 50 mg/ml inj IV PRN (22:00)
[2023-04-24] MEDS: heparin 25,000 UNIT/250ml bag 250 ML IV PRN (22:07)
[2023-04-24] MEDS ORDERED: hydrALAZINE 20mg/ml inj. IV ONE (22:20)
[2023-04-24 22:35] LABS: MAGNESIUM 2.4 MG/DL (1.5-2.4); PHOSPHORUS 5.9 MG/DL (2.3-4.5)
--- NOTE | 2023-04-24 22:37 | NUR ---
LILI DAUGHTER [phone]
[2023-04-24] MEDS: normal saline 1000ml 1,000 ML IV SCH (22:39)
[2023-04-24 22:44] LABS: HEMOGLOBIN A1C 4.6 % (4.5-6.2)
[2023-04-24 22:52] VITALS: PULSE 51; RESP 16; O2SAT 93
[2023-04-24 23:03] LABS: THYROID STIMULATING HORMONE 0.34 ulU/ml (0.34-4.50)
[2023-04-24] MEDS ORDERED: nitroGLYCERIN-Tridil 50MG/D5W 250 ML IV SCH (23:50)
[2023-04-24 23:51] LABS: D-DIMER 1.37 MG/L FEU (0-0.50)
[2023-04-25] VITALS (10 sets, daily range): BP systolic 160–171; BP diastolic 75–90; PULSE 52–72; RESP 14–26; TEMP 97.8; O2SAT 92–98
--- NOTE | 2023-04-25 00:47 | NUR ---
hydralazine marked as completed in emar, but not adminstered. Nitroglycerin administered as ordered
[2023-04-25 01:43] LABS: ANISOCYTOSIS 2+; PLATELET ESTIMATE NORMAL
[2023-04-25 03:18] LABS: BASOPHILS # (AUTO) 0.1 X10'3 (0-0.2); BASOPHILS % (AUTO) 0.9 % (0-1); EOSINOPHILS # (AUTO) 0.4 X10'3 (0-0.9); EOSINOPHILS % (AUTO) 5.6 % (0-6); HEMATOCRIT 28.7 % (35.0-45.0); HEMOGLOBIN 9.2 g/dl (12.0-16.0); LYMPHOCYTES # (AUTO) 1.3 X10'3 (1.1-4.8); MEAN CORPUSCULAR HEMOGLOBIN 35.1 PG (27.0-31.0); MEAN CORPUSCULAR VOLUME 109.7 FL (78-98); MEAN PLATELET VOLUME 8.7 FL (7.4-10.4); MONOCYTES # (AUTO) 0.6 X10'3 (0-0.9); MONOCYTES % (AUTO) 8.4 % (2-12); NEUTROPHILS # (AUTO) 5.2 X10'3 (1.8-7.7); NEUTROPHILS % (AUTO) 68.1 % (42-75); PLATELET COUNT 274 X10'3 (140-440); RED BLOOD COUNT 2.62 X10'6 (4.20-5.60); RED CELL DISTRIBUTION WIDTH 19.5 % (11.5-14.5); WHITE BLOOD COUNT 7.6 X10'3 (4.5-11.0)
[2023-04-25 03:25] LABS: ALANINE AMINOTRANSFERASE 27 U/L (12-78); ALBUMIN 2.4 G/DL (3.4-5.0); ALBUMIN/GLOBULIN RATIO 0.6 (1.1-1.5); ALKALINE PHOSPHATASE 52 IU/L (46-116); ANION GAP 11 (8-16); ASPARTATE AMINO TRANSFERASE 34 U/L (10-37); BILIRUBIN,TOTAL 0.6 MG/DL (0.1-1.0); BLOOD UREA NITROGEN 79 MG/DL (7-18); BUN/CREATININE RATIO 21.5 (10.0-20.0); CALCIUM 8.8 MG/DL (8.5-10.1); CHLORIDE 107 MMOL/L (99-107); CHOL/HDL RATIO 2.7 (0.00-4.99); CHOLESTEROL 51 MG/DL (0-200); CREATININE 3.67 MG/DL (0.40-0.90); GLUCOSE 90 MG/DL (70-104); HDL CHOLESTEROL 19 MG/DL (35-60); LDL CHOLESTEROL 29 MG/DL (50-100); POTASSIUM 4.4 MMOL/L (3.5-5.1); SODIUM 138 MMOL/L (135-145); TOTAL CARBON DIOXIDE 20.2 MMOL/L (24-32); TOTAL PROTEIN 6.6 G/DL (6.4-8.2); TRIGLYCERIDES 45 MG/DL (20-135); eCRCL 10 ML/MIN; eGFR 12 ML/MIN
--- NOTE | 2023-04-25 04:04 | NUR ---
I have reviewed and agree with all assessments performed and documented by Kaitlynn.
[2023-04-25] MEDS: heparin 25,000 UNIT/250ml bag 250 ML IV PRN (05:57)
[2023-04-25 06:53] LABS: ANISOCYTOSIS 2+; PLATELET ESTIMATE NORMAL; POLYCHROMASIA FEW
[2023-04-25] MEDS: pantoprazole 40mg Tablet.DR PO SCH (08:25)
[2023-04-25] MEDS: docusate sod 100mg capsule PO SCH ×2 (08:25→20:00)
[2023-04-25] MEDS: furosemide 10 MG/1 ML 10ml inj IV SCH ×2 (09:07→20:00)
[2023-04-25] MEDS ORDERED: ipratropium/albuterol 3ml nebule IH PRN (12:25)
[2023-04-25] MEDS: metoprolol tartrate 50mg tablet PO SCH ×2 (12:29→20:00)
[2023-04-25] MEDS ORDERED: albuterol 2.5 MG/3 ML nebule NEB PRN (12:40)
--- NOTE | 2023-04-25 12:40 | NUR ---
I AGREE WITH THE ASSESSMENT PER Jeanmarie FOLEY LVN
[2023-04-25] MEDS: lisinopril 20mg tablet PO SCH (12:46)
--- NOTE | 2023-04-25 13:19 | NUR ---
PAGED DR BAILEY ABOUT METOPROLOL BEING HELD, HR WAS 51
[2023-04-25] MEDS ORDERED: non-formulary drug (Vit C/E/Zn/Coppr/Lutein/Zeaxan (Preservision Areds 2 Softgel) 1 CAP) PO SCH (20:00)
[2023-04-25] MEDS ORDERED: hydrALAZINE 25 MG tablet PO SCH (20:00)
[2023-04-25] MEDS: Breztri Aerosphere Inhaler IH SCH (20:00)
[2023-04-25] MEDS: OMEGA-3/DHA/EPA/FISH OIL 1 EACH CAPSULE.DR PO SCH (20:00)
[2023-04-25] MEDS: Melatonin 3mg tablet PO SCH (21:00)
[2023-04-26] VITALS (16 sets, daily range): BP systolic 137–185; BP diastolic 57–84; PULSE 50–63; RESP 12–24; TEMP 97.1–98.4; O2SAT 92–99
--- NOTE | 2023-04-26 04:50 | NUR ---
2000 medications missed due to technical error
--- NOTE | 2023-04-26 06:42 | NUR ---
Patient in room PCU 3016. I have received report from MORENO TIRADO, and had the opportunity to ask questions and assume patient care.
[2023-04-26 07:10] LABS: ALANINE AMINOTRANSFERASE 25 U/L (12-78); ALBUMIN 2.3 G/DL (3.4-5.0); ALBUMIN/GLOBULIN RATIO 0.5 (1.1-1.5); ALKALINE PHOSPHATASE 49 IU/L (46-116); ANION GAP 12 (8-16); ASPARTATE AMINO TRANSFERASE 33 U/L (10-37); BILIRUBIN,TOTAL 0.8 MG/DL (0.1-1.0); BLOOD UREA NITROGEN 68 MG/DL (7-18); BUN/CREATININE RATIO 19.9 (10.0-20.0); CALCIUM 8.5 MG/DL (8.5-10.1); CHLORIDE 104 MMOL/L (99-107); CREATININE 3.42 MG/DL (0.40-0.90); GLUCOSE 97 MG/DL (70-104); POTASSIUM 4.1 MMOL/L (3.5-5.1); SODIUM 137 MMOL/L (135-145); TOTAL CARBON DIOXIDE 21.2 MMOL/L (24-32); TOTAL PROTEIN 6.5 G/DL (6.4-8.2); eCRCL 10 ML/MIN; eGFR 13 ML/MIN
[2023-04-26 07:18] LABS: BASOPHILS # (AUTO) 0.1 X10'3 (0-0.2); BASOPHILS % (AUTO) 1.3 % (0-1); EOSINOPHILS # (AUTO) 0.3 X10'3 (0-0.9); EOSINOPHILS % (AUTO) 3.2 % (0-6); HEMATOCRIT 29.4 % (35.0-45.0); HEMOGLOBIN 9.5 g/dl (12.0-16.0); LYMPHOCYTES # (AUTO) 1.2 X10'3 (1.1-4.8); MEAN CORPUSCULAR HEMOGLOBIN 35.4 PG (27.0-31.0); MEAN CORPUSCULAR HGB CONC 32.3 g/dL (33.0-36.5); MEAN CORPUSCULAR VOLUME 109.7 FL (78-98); MEAN PLATELET VOLUME 8.7 FL (7.4-10.4); MONOCYTES # (AUTO) 0.9 X10'3 (0-0.9); MONOCYTES % (AUTO) 9.2 % (2-12); NEUTROPHILS # (AUTO) 7.2 X10'3 (1.8-7.7); NEUTROPHILS % (AUTO) 74.3 % (42-75); PLATELET COUNT 270 X10'3 (140-440); RED BLOOD COUNT 2.68 X10'6 (4.20-5.60); RED CELL DISTRIBUTION WIDTH 19.5 % (11.5-14.5); WHITE BLOOD COUNT 9.8 X10'3 (4.5-11.0)
[2023-04-26] MEDS: Breztri Aerosphere Inhaler IH SCH ×2 (07:18→19:16)
[2023-04-26] MEDS: aspirin 81mg, enteric-coated 1 TAB TABLET.DR PO SCH (07:25)
[2023-04-26] MEDS: fenofibrate 145mg tablet PO SCH (07:26)
[2023-04-26] MEDS: OMEGA-3/DHA/EPA/FISH OIL 1 EACH CAPSULE.DR PO SCH ×2 (07:26→20:15)
[2023-04-26] MEDS: montelukast 10mg tablet PO SCH (07:26)
[2023-04-26] MEDS: lisinopril 20mg tablet PO SCH (07:26)
[2023-04-26] MEDS: levoTHYROXINE 75mcg tablet PO SCH (07:28)
[2023-04-26] MEDS: duloxetine 30mg CAPSULE.DR PO SCH (07:28)
[2023-04-26] MEDS: potassium chloride 8mEq ER tablet PO SCH (07:29)
[2023-04-26] MEDS: metoprolol tartrate 50mg tablet PO SCH ×2 (07:29→20:16)
[2023-04-26] MEDS: multivitamins, therapeutics tablet PO SCH (07:29)
[2023-04-26] MEDS: docusate sod 100mg capsule PO SCH ×2 (07:30→20:15)
[2023-04-26] MEDS: pantoprazole 40mg Tablet.DR PO SCH (07:30)
[2023-04-26] MEDS: atorvastatin 10mg tablet PO SCH (07:31)
[2023-04-26] MEDS: fluticasone nasal spray 16GM bottle NS SCH (07:31)
[2023-04-26] MEDS: furosemide 10 MG/1 ML 10ml inj IV SCH ×2 (07:33→20:15)
--- NOTE | 2023-04-26 07:41 | NUR ---
PAGE SENT PAGER ID: [phone] MESSAGE: [id number] THU DOVER, CRITICAL LAB: CPTT - 92. HEPARIN GTT PAUSED. THANK YOU, JOSE [phone]
[2023-04-26 09:18] LABS: ANISOCYTOSIS 2+; HYPOCHROMASIA 1+; PLATELET ESTIMATE NORMAL; POLYCHROMASIA FEW; STOMATOCYTES 1+; TEAR DROP CELLS FEW
[2023-04-26] MEDS ORDERED: docusate sod 100mg capsule PO ONE (10:30)
--- NOTE | 2023-04-26 18:16 | NUR ---
Patient in room PCU 3016. I have received report from Zoraida MAYER, and had the opportunity to ask questions and assume patient care.
--- NOTE | 2023-04-26 18:19 | NUR ---
Problems reprioritized. Patient report given, questions answered & plan of care reviewed with MORENO FORREST.
[2023-04-26] MEDS: Melatonin 3mg tablet PO SCH (20:16)
[2023-04-26] MEDS: hyDRALAzine 10mg tablet PO SCH (20:16)
[2023-04-26] MEDS: normal saline 1000ml 1,000 ML IV SCH (22:00)
[2023-04-27 02:00] VITALS: BP 161/78; PULSE 83; RESP 18; TEMP 96.8; O2SAT 98
[2023-04-27 06:33] LABS: BASOPHILS # (AUTO) 0.1 X10'3 (0-0.2); BASOPHILS % (AUTO) 0.6 % (0-1); EOSINOPHILS # (AUTO) 0.4 X10'3 (0-0.9); EOSINOPHILS % (AUTO) 4.2 % (0-6); HEMATOCRIT 29.2 % (35.0-45.0); HEMOGLOBIN 9.5 g/dl (12.0-16.0); LYMPHOCYTES # (AUTO) 1.1 X10'3 (1.1-4.8); MEAN CORPUSCULAR HEMOGLOBIN 35.6 PG (27.0-31.0); MEAN CORPUSCULAR HGB CONC 32.7 g/dL (33.0-36.5); MEAN CORPUSCULAR VOLUME 108.9 FL (78-98); MEAN PLATELET VOLUME 8.5 FL (7.4-10.4); MONOCYTES # (AUTO) 0.8 X10'3 (0-0.9); MONOCYTES % (AUTO) 9.8 % (2-12); NEUTROPHILS # (AUTO) 6.3 X10'3 (1.8-7.7); NEUTROPHILS % (AUTO) 72.4 % (42-75); PLATELET COUNT 265 X10'3 (140-440); RED BLOOD COUNT 2.68 X10'6 (4.20-5.60); WHITE BLOOD COUNT 8.7 X10'3 (4.5-11.0)
--- NOTE | 2023-04-27 06:45 | NUR ---
Problems reprioritized. Patient report given, questions answered & plan of care reviewed with Zoraida MAYER and Peggy MAYER. Pt stable at shift change.
[2023-04-27 06:49] LABS: ALANINE AMINOTRANSFERASE 24 U/L (12-78); ALBUMIN 2.2 G/DL (3.4-5.0); ALBUMIN/GLOBULIN RATIO 0.6 (1.1-1.5); ALKALINE PHOSPHATASE 48 IU/L (46-116); ANION GAP 10 (8-16); ASPARTATE AMINO TRANSFERASE 30 U/L (10-37); BILIRUBIN,TOTAL 0.7 MG/DL (0.1-1.0); BLOOD UREA NITROGEN 63 MG/DL (7-18); BUN/CREATININE RATIO 18.5 (10.0-20.0); CALCIUM 8.5 MG/DL (8.5-10.1); CHLORIDE 104 MMOL/L (99-107); CREATININE 3.41 MG/DL (0.40-0.90); GLUCOSE 90 MG/DL (70-104); POTASSIUM 4.2 MMOL/L (3.5-5.1); SODIUM 137 MMOL/L (135-145); TOTAL CARBON DIOXIDE 23.2 MMOL/L (24-32); TOTAL PROTEIN 6.2 G/DL (6.4-8.2); eCRCL 10 ML/MIN; eGFR 13 ML/MIN
--- NOTE | 2023-04-27 07:09 | NUR ---
Patient in room PCU 3016. I have received report from MORENO FORREST, and had the opportunity to ask questions and assume patient care.
[2023-04-27 07:18] VITALS: PULSE 52; RESP 16; O2SAT 98
[2023-04-27] MEDS: Breztri Aerosphere Inhaler IH SCH (07:27)
[2023-04-27 07:29] VITALS: PULSE 52; RESP 16
[2023-04-27 08:00] VITALS: RESP 18; O2SAT 98
[2023-04-27] MEDS ORDERED: docusate sod 100mg capsule PO SCH (08:00)
[2023-04-27] MEDS: metoprolol tartrate 50mg tablet PO SCH (08:00)
[2023-04-27] MEDS: atorvastatin 10mg tablet PO SCH (08:02)
[2023-04-27] MEDS: duloxetine 30mg CAPSULE.DR PO SCH (08:03)
[2023-04-27] MEDS: lisinopril 20mg tablet PO SCH (08:06)
[2023-04-27] MEDS: levoTHYROXINE 75mcg tablet PO SCH (08:07)
[2023-04-27] MEDS: potassium chloride 8mEq ER tablet PO SCH (08:07)
[2023-04-27] MEDS: OMEGA-3/DHA/EPA/FISH OIL 1 EACH CAPSULE.DR PO SCH (08:08)
[2023-04-27] MEDS: multivitamins, therapeutics tablet PO SCH (08:08)
[2023-04-27] MEDS: aspirin 81mg, enteric-coated 1 TAB TABLET.DR PO SCH (08:09)
[2023-04-27] MEDS: fenofibrate 145mg tablet PO SCH (08:09)
[2023-04-27 08:10] VITALS: BP_SYST 173; PULSE 55
[2023-04-27] MEDS: pantoprazole 40mg Tablet.DR PO SCH (08:10)
[2023-04-27] MEDS: hyDRALAzine 10mg tablet PO SCH (08:10)
[2023-04-27] MEDS: furosemide 10 MG/1 ML 10ml inj IV SCH (08:14)
[2023-04-27] MEDS: montelukast 10mg tablet PO SCH (08:14)
[2023-04-27] MEDS: docusate sod 100mg capsule PO SCH (08:21)
[2023-04-27] MEDS: fluticasone nasal spray 16GM bottle NS SCH (08:21)
[2023-04-27] MEDS ORDERED: FURO20TA4 PO (12:05)
--- NOTE | 2023-04-27 12:27 | NUR ---
SPOKE TO DAUGHTER, LILI. SHE EXPECTS TO BE HERE FOR A 15:30-16:00.
--- NOTE | 2023-04-27 15:45 | NUR ---
DISCHARGE NOTE PATIENT DISCHARGED PER WHEELCHAIR WITH ALL OF HER BELONGINGS ACCOMPANIED BY HER DAUGHTER VIA PRIVATE VEHICLE.. PATIENT IS STABLE IN CONDITION. PORTABLE O2 PLACED BY DAUGHTER.UPON DISCHARGE, DISCHARGE PACKET WAS GIVEN TO PATIENT. ENDORSED PATIENT AND DAUGHTER TO SEE HER PRIMARY CARE PROVIDER WITHIN A WEEK. ENDORSED PATIENT TO RETURN TO ED IF SYMPTOMS OF INCREASED TEMPERATURE, PAIN OR DISCOMFORT OCCUR. IV CATH, PURE WICK, TELE BOX, AND ID BAND REMOVED.
--- NOTE | 2023-04-27 18:01 | NUR ---
I APPROVE THE DOCUMENTATION DONE BY LIZZ ORTEGA,
== END 2023-04-27 15:45 | disposition home health service (06) | DRG 280 ==
LOC: ER 16:22 → ED HOLD 22:02 → EDBEDREQ 04-25 17:17 → PCU 3S 04-25 19:53
PROVIDERS: ADMIT Family Medicine; ATTEND Internal Medicine
DX: I11.0 Hypertensive heart disease with heart failure (principal); I50.33 Acute on chronic diastolic (congestive) heart failure; I21.A1 Myocardial infarction type 2; J96.01 Acute respiratory failure with hypoxia; N17.0 Acute kidney failure with tubular necrosis; N18.4 Chronic kidney disease, stage 4 (severe); E87.20 Acidosis, unspecified; R00.1 Bradycardia, unspecified; E03.9 Hypothyroidism, unspecified; E88.09 Other disorders of plasma-protein metabolism, not elsewhere classified; J44.9 Chronic obstructive pulmonary disease, unspecified; E78.5 Hyperlipidemia, unspecified; I13.0 Hypertensive heart and chronic kidney disease with heart failure and stage 1 through stage 4 chronic kidney disease, or unspecified chronic kidney disease; I20.9 Angina pectoris, unspecified; D64.9 Anemia, unspecified; I27.20 Pulmonary hypertension, unspecified; E21.3 Hyperparathyroidism, unspecified; Z82.5 Family history of asthma and other chronic lower respiratory diseases; Z83.3 Family history of diabetes mellitus; Z90.49 Acquired absence of other specified parts of digestive tract; Z79.82 Long term (current) use of aspirin; Z79.899 Other long term (current) drug therapy; Z87.440 Personal history of urinary (tract) infections; Z91.199 Patient's noncompliance with other medical treatment and regimen due to unspecified reason
CPT/HCPCS: 36415; 71045; 80053; 80061; 83036; 83605; 83735; 83880; 84100; 84443; 84484; 85008; 85025; 85379; 85610; 85730; 87040; 94640; 94760; 99285; A6250; A6455; G0378; J1644; J1940; J3490; J7030

== ENCOUNTER 2024-04-25 20:30 | Inpatient (IN) | payer MEDICARE, MEDICAID ==
[~2024-04-25] VITALS: Ht 154.9 cm; Wt 58.5 kg
[~2024-04-25 20:30] MED LIST changes: -FLUT1BLS4 IH; -HYDR-4069 PO; +HYDR25TA90 PO
[2024-04-25] MEDS: normal saline 500ml IV soln 500 ML IV ONE (22:03)
[2024-04-25 22:08] LABS: BASOPHILS % (AUTO) 0.2 % (0-1); EOSINOPHILS # (AUTO) 0.1 X10'3 (0-0.9); EOSINOPHILS % (AUTO) 0.3 % (0-6); HEMATOCRIT 29.1 % (35.0-45.0); LYMPHOCYTES # (AUTO) 1.5 X10'3 (1.1-4.8); LYMPHOCYTES % (AUTO) 6.2 % (21-51); MEAN CORPUSCULAR HEMOGLOBIN 32.9 PG (27.0-31.0); MEAN CORPUSCULAR HGB CONC 30.9 g/dL (33.0-36.5); MEAN CORPUSCULAR VOLUME 106.4 FL (78-98); MONOCYTES # (AUTO) 1.5 X10'3 (0-0.9); MONOCYTES % (AUTO) 6.2 % (2-12); NEUTROPHILS # (AUTO) 20.6 X10'3 (1.8-7.7); NEUTROPHILS % (AUTO) 87.1 % (42-75); PLATELET COUNT 312 X10'3 (140-440); RED BLOOD COUNT 2.73 X10'6 (4.20-5.60); RED CELL DISTRIBUTION WIDTH 19.6 % (11.5-14.5); WHITE BLOOD COUNT 23.6 X10'3 (4.5-11.0)
[2024-04-25 22:09] LABS: ALANINE AMINOTRANSFERASE 15 U/L (12-78); ALBUMIN 1.7 G/DL (3.4-5.0); ALBUMIN/GLOBULIN RATIO 0.3 (1.1-1.5); ALKALINE PHOSPHATASE 94 IU/L (46-116); ANION GAP 8 (8-16); ASPARTATE AMINO TRANSFERASE 21 U/L (10-37); BILIRUBIN,TOTAL 0.8 MG/DL (0.1-1.0); BLOOD UREA NITROGEN 41 MG/DL (7-18); CALCIUM 8.8 MG/DL (8.5-10.1); CHLORIDE 101 MMOL/L (99-107); CREATININE 3.74 MG/DL (0.40-0.90); GLUCOSE 78 MG/DL (70-104); POTASSIUM 3.6 MMOL/L (3.5-5.1); SODIUM 136 MMOL/L (135-145); TOTAL CARBON DIOXIDE 26.8 MMOL/L (24-32); TOTAL PROTEIN 6.8 G/DL (6.4-8.2); eCRCL 9 ML/MIN; eGFR 11 ML/MIN
[2024-04-25 22:24] LABS: PLATELET ESTIMATE NORMAL
[2024-04-25 22:25] LABS: ANISOCYTOSIS 1+
[2024-04-26] VITALS (16 sets, daily range): BP systolic 98–126; BP diastolic 52–61; PULSE 76–117; RESP 10–25; TEMP 96.7–98.1; O2SAT 75–97
[2024-04-26] MEDS ORDERED: ondansetron/PF 4mg/2ml inj IV PRN (01:00)
[2024-04-26] MEDS ORDERED: mag hydrox/Alum hydrox/simeth 30ml oral suspension PO PRN (01:00)
[2024-04-26] MEDS ORDERED: magnesium hydroxide 30ml (MOM) UD suspension PO PRN (01:00)
[2024-04-26] MEDS ORDERED: magnesium sulf-water 2g/50mL 50 ML IV PRN (01:00)
[2024-04-26] MEDS ORDERED: magnesium Cl slow-release 64mg tablet PO PRN (01:00)
[2024-04-26] MEDS ORDERED: magnesium sulf-water 4G/100mL 100 ML IV PRN (01:00)
[2024-04-26] MEDS ORDERED: potassium Cl 40MEQ/1/2NS 520ml 520 ML IV PRN (01:00)
[2024-04-26] MEDS ORDERED: acetaminophen 325mg tablet PO PRN ×2 (01:00)
[2024-04-26] MEDS ORDERED: potassium Cl 20 mEq SR tablet PO PRN ×2 (01:00)
[2024-04-26] MEDS ORDERED: HYDROcodone/acetaminophen 5mg/325mg tablet PO PRN (01:00)
[2024-04-26 01:43] LABS: PRO BRAIN NATRIURETIC PEPTIDE 29366 PG/ML (0-450)
[2024-04-26 01:44] LABS: INR 1.2 INR; PROTHROMBIN TIME 12.1 SECONDS (9.0-12.0)
[2024-04-26] MEDS ORDERED: VANCOMYCIN 1GM 200ML H20 (PEG) 200 ML IV PRN (03:40)
[2024-04-26] MEDS: piperacillin/tazo 3.375gm/50ml 50 ML IV ONE (03:51)
[2024-04-26] MEDS: ziprasidone IM 20mg inj **IM only IM ONE (04:54)
[2024-04-26] MEDS: VANCOMYCIN 1GM 200ML H20 (PEG) 200 ML IV ONE (05:44)
[2024-04-26] MEDS: docusate sod 100mg capsule PO SCH (08:00)
[2024-04-26] MEDS: K and/or MAG REPLACEMENT MC SCH (08:00)
[2024-04-26] MEDS: piperacillin/tazo 3.375gm/50ml 50 ML IV SCH (08:57)
[2024-04-26] MEDS ORDERED: SYN0.088T PO (16:15)
[2024-04-26] MEDS ORDERED: FURO40TA4 PO (16:15)
[2024-04-26] MEDS ORDERED: CYCL-394 PO (16:15)
[2024-04-26] MEDS ORDERED: FURO-149 PO (16:15)
[2024-04-26] MEDS ORDERED: PANT-47 PO (16:15)
[2024-04-26] MEDS ORDERED: MONT-40 PO (16:15)
[2024-04-26] MEDS ORDERED: NITR0.4T51 SL (16:19)
[2024-04-26] MEDS ORDERED: POLY119P2 PO (16:21)
[2024-04-26] MEDS ORDERED: trazadone PO (16:26)
[2024-04-26] MEDS ORDERED: ISOS30TA9 PO (16:26)
[2024-04-26] MEDS: albuterol 2.5 MG/3 ML nebule NEB SCH (17:15)
[2024-04-26] MEDS: QUEtiapine 25mg tablet PO ONE (23:35)
[2024-04-27] VITALS (24 sets, daily range): BP systolic 93–156; BP diastolic 48–98; PULSE 70–126; RESP 18–23; TEMP 96.4–98.5; O2SAT 89–99
[2024-04-27] MEDS: EPOETIN ALFA-EPBX 20,000 UNIT/ML 1 ML MDV IV ONE (04:55)
[2024-04-27 07:49] LABS: INR 1.2 INR; PROTHROMBIN TIME 12.6 SECONDS (9.0-12.0)
[2024-04-27 08:06] LABS: ALBUMIN 1.4 G/DL (3.4-5.0); ANION GAP 14 (8-16); BLOOD UREA NITROGEN 56 MG/DL (7-18); BUN/CREATININE RATIO 11.6 (10.0-20.0); CALCIUM 8.5 MG/DL (8.5-10.1); CHLORIDE 100 MMOL/L (99-107); CREATININE 4.81 MG/DL (0.40-0.90); GLUCOSE 94 MG/DL (70-104); MAGNESIUM 2.4 MG/DL (1.5-2.4); PHOSPHORUS 4.3 MG/DL (2.3-4.5); POTASSIUM 3.5 MMOL/L (3.5-5.1); SODIUM 137 MMOL/L (135-145); TOTAL CARBON DIOXIDE 22.9 MMOL/L (24-32); VANCOMYCIN,RANDOM 27.8 ug/mL (20.0-30.0); eCRCL 6 ML/MIN; eGFR 9 ML/MIN
[2024-04-27] MEDS: vancomycin 125 MG/5 ML UD oral SOLN.RECON 5mL oral syringe (FIRVANQ) PO SCH (09:04)
[2024-04-27] MEDS: heparin 1,000 units/ml 10ml inj HE ONE (12:55)
[2024-04-27] MEDS: heparin 1,000 units/ml 10ml inj IV ONE (13:44)
[2024-04-27] MEDS: furosemide 40mg/4ml inj IV ONE (16:28)
[2024-04-27] MEDS: lactose-reduced food (Ensure Enlive) - 237ml bottle PO SCH (17:30)
[2024-04-27 18:19] LABS: BASOPHILS # (AUTO) 0.1 X10'3 (0-0.2); BASOPHILS % (AUTO) 0.2 % (0-1); EOSINOPHILS # (AUTO) 0.1 X10'3 (0-0.9); EOSINOPHILS % (AUTO) 0.3 % (0-6); HEMATOCRIT 30.1 % (35.0-45.0); HEMOGLOBIN 9.6 g/dl (12.0-16.0); LYMPHOCYTES # (AUTO) 1.4 X10'3 (1.1-4.8); LYMPHOCYTES % (AUTO) 4.8 % (21-51); MEAN CORPUSCULAR HEMOGLOBIN 33.6 PG (27.0-31.0); MEAN CORPUSCULAR HGB CONC 31.8 g/dL (33.0-36.5); MEAN CORPUSCULAR VOLUME 105.5 FL (78-98); MEAN PLATELET VOLUME 8.2 FL (7.4-10.4); MONOCYTES # (AUTO) 2.1 X10'3 (0-0.9); MONOCYTES % (AUTO) 7.5 % (2-12); NEUTROPHILS % (AUTO) 87.2 % (42-75); PLATELET COUNT 298 X10'3 (140-440); RED BLOOD COUNT 2.85 X10'6 (4.20-5.60); RED CELL DISTRIBUTION WIDTH 19.1 % (11.5-14.5)
[2024-04-27 18:23] LABS: WHITE BLOOD COUNT 28.6 X10'3 (4.5-11.0)
[2024-04-27 18:48] LABS: ANISOCYTOSIS 2+; PLATELET ESTIMATE NORMAL; TOTAL CELLS COUNTED 100
[2024-04-27 18:49] LABS: STOMATOCYTES 2+
[2024-04-27] MEDS: dextrose 5%-1/2 normal saline 1,000 ML IV SCH (23:01)
[2024-04-28] VITALS (20 sets, daily range): BP systolic 132–167; BP diastolic 54–78; PULSE 79–118; RESP 15–36; TEMP 97.1–98.5; O2SAT 92–100
[2024-04-28 07:39] LABS: BASOPHILS % (AUTO) 0.1 % (0-1); EOSINOPHILS # (AUTO) 0.1 X10'3 (0-0.9); EOSINOPHILS % (AUTO) 0.5 % (0-6); HEMATOCRIT 26.3 % (35.0-45.0); HEMOGLOBIN 8.3 g/dl (12.0-16.0); LYMPHOCYTES # (AUTO) 1.7 X10'3 (1.1-4.8); LYMPHOCYTES % (AUTO) 6.7 % (21-51); MEAN CORPUSCULAR HEMOGLOBIN 33.3 PG (27.0-31.0); MEAN CORPUSCULAR HGB CONC 31.5 g/dL (33.0-36.5); MEAN CORPUSCULAR VOLUME 105.6 FL (78-98); MONOCYTES # (AUTO) 1.8 X10'3 (0-0.9); MONOCYTES % (AUTO) 7.4 % (2-12); NEUTROPHILS # (AUTO) 21.3 X10'3 (1.8-7.7); NEUTROPHILS % (AUTO) 85.3 % (42-75); PLATELET COUNT 296 X10'3 (140-440); RED BLOOD COUNT 2.49 X10'6 (4.20-5.60); RED CELL DISTRIBUTION WIDTH 18.8 % (11.5-14.5)
[2024-04-28 08:13] LABS: ALBUMIN 1.5 G/DL (3.4-5.0); ANION GAP 6 (8-16); BLOOD UREA NITROGEN 26 MG/DL (7-18); BUN/CREATININE RATIO 7.9 (10.0-20.0); CALCIUM 8.6 MG/DL (8.5-10.1); CHLORIDE 103 MMOL/L (99-107); CREATININE 3.29 MG/DL (0.40-0.90); GLUCOSE 96 MG/DL (70-104); PHOSPHORUS 3.4 MG/DL (2.3-4.5); POTASSIUM 3.1 MMOL/L (3.5-5.1); SODIUM 139 MMOL/L (135-145); TOTAL CARBON DIOXIDE 29.7 MMOL/L (24-32); eCRCL 9 ML/MIN; eGFR 13 ML/MIN
[2024-04-28 08:18] LABS: VANCOMYCIN,RANDOM 22.6 ug/mL (20.0-30.0)
[2024-04-28 08:30] LABS: INR 1.2 INR; PROTHROMBIN TIME 12.6 SECONDS (9.0-12.0)
[2024-04-28] MEDS: VANCOMYCIN LEVEL IV ONE (09:54)
[2024-04-28] MEDS: piperacillin/tazo 3.375gm/50ml 50 ML IV SCH (20:04)
[2024-04-29] VITALS (24 sets, daily range): BP systolic 90–166; BP diastolic 43–103; PULSE 85–127; RESP 18–38; TEMP 97.2–98.6; O2SAT 92–100
[2024-04-29] MEDS: VANCOMYCIN LEVEL IV SCH (03:00)
[2024-04-29] MEDS ORDERED: heparin 1,000 units/ml 10ml inj IV ONE (08:00)
[2024-04-29 08:26] LABS: BASOPHILS % (AUTO) 0.3 % (0-1); EOSINOPHILS # (AUTO) 0.2 X10'3 (0-0.9); EOSINOPHILS % (AUTO) 1.2 % (0-6); HEMATOCRIT 26.5 % (35.0-45.0); HEMOGLOBIN 8.5 g/dl (12.0-16.0); LYMPHOCYTES # (AUTO) 1.9 X10'3 (1.1-4.8); LYMPHOCYTES % (AUTO) 10.1 % (21-51); MEAN CORPUSCULAR HEMOGLOBIN 33.8 PG (27.0-31.0); MEAN CORPUSCULAR VOLUME 105.7 FL (78-98); MEAN PLATELET VOLUME 8.2 FL (7.4-10.4); MONOCYTES # (AUTO) 1.6 X10'3 (0-0.9); MONOCYTES % (AUTO) 8.9 % (2-12); NEUTROPHILS # (AUTO) 14.6 X10'3 (1.8-7.7); NEUTROPHILS % (AUTO) 79.5 % (42-75); PLATELET COUNT 266 X10'3 (140-440); RED CELL DISTRIBUTION WIDTH 18.9 % (11.5-14.5); WHITE BLOOD COUNT 18.3 X10'3 (4.5-11.0)
[2024-04-29 08:36] LABS: INR 1.2 INR; PROTHROMBIN TIME 12.8 SECONDS (9.0-12.0)
[2024-04-29 09:24] LABS: ALBUMIN 1.4 G/DL (3.4-5.0); ANION GAP 9 (8-16); BLOOD UREA NITROGEN 40 MG/DL (7-18); BUN/CREATININE RATIO 9.9 (10.0-20.0); CALCIUM 8.9 MG/DL (8.5-10.1); CHLORIDE 102 MMOL/L (99-107); CREATININE 4.04 MG/DL (0.40-0.90); GLUCOSE 116 MG/DL (70-104); PHOSPHORUS 2.3 MG/DL (2.3-4.5); POTASSIUM 3.1 MMOL/L (3.5-5.1); SODIUM 139 MMOL/L (135-145); VANCOMYCIN,RANDOM 20.1 ug/mL (20.0-30.0); eCRCL 8 ML/MIN; eGFR 10 ML/MIN
[2024-04-29] MEDS ORDERED: potassium Cl 20 mEq SR tablet PO PRN (09:30)
[2024-04-29] MEDS ORDERED: potassium Cl 40MEQ/1/2NS 520ml 520 ML IV PRN (09:30)
[2024-04-29] MEDS ORDERED: magnesium sulf-water 2g/50mL 50 ML IV PRN (09:30)
[2024-04-29] MEDS ORDERED: magnesium sulf-water 4G/100mL 100 ML IV PRN (09:30)
[2024-04-29] MEDS ORDERED: magnesium Cl slow-release 64mg tablet PO PRN (09:30)
[2024-04-29] MEDS: potassium Cl 20 mEq SR tablet PO PRN (09:51)
[2024-04-29 10:06] LABS: TOTAL CELLS COUNTED 100
[2024-04-29 10:07] LABS: ANISOCYTOSIS 2+; PLATELET ESTIMATE NORMAL; STOMATOCYTES FEW
[2024-04-29] MEDS ORDERED: VANCOMYCIN LEVEL IV ONE (10:55)
[2024-04-29] MEDS: HYDROcodone/acetaminophen 10/325mg tab PO PRN (11:55)
[2024-04-29] MEDS: diltiazem 30mg tablet PO SCH (14:33)
[2024-04-29] MEDS: heparin 1,000 units/ml 10ml inj HE ONE (15:31)
[2024-04-29] MEDS: metoprolol tartrate 50mg tablet PO SCH (19:54)
[2024-04-29] MEDS: apixaban 2.5mg tablet PO SCH (19:54)
[2024-04-29] MEDS: K and/or MAG REPLACEMENT MC SCH (20:00)
[2024-04-30 05:19] LABS: HBSAG SCREEN Negative (Negative); HEP B SURF AB Non Reactive (.)
== END 2024-04-29 20:30 | DRG 193 ==
LOC: ER 20:31 → ED HOLD 04-26 01:06 → EDBEDREQ 04-26 03:18 → PCU 3S 04-26 04:05
PROVIDERS: ADMIT Internal Medicine Critical Care Medicine; ATTEND Internal Medicine
PROC: 5A1D70Z Performance of Urinary Filtration, Intermittent, Less than 6 Hours Per Day (ICD-10-PCS; principal; 2024-04-27)
PROC: 5A0935A Assistance with Respiratory Ventilation, Less than 24 Consecutive Hours, High Flow/Velocity Cannula (ICD-10-PCS; 2024-04-27)
PROC: 5A0935A Assistance with Respiratory Ventilation, Less than 24 Consecutive Hours, High Flow/Velocity Cannula (ICD-10-PCS; 2024-04-28)
PROC: 5A1D70Z Performance of Urinary Filtration, Intermittent, Less than 6 Hours Per Day (ICD-10-PCS; 2024-04-29)
PROC: 5A0935A Assistance with Respiratory Ventilation, Less than 24 Consecutive Hours, High Flow/Velocity Cannula (ICD-10-PCS; 2024-04-29)
DX: J15.9 Unspecified bacterial pneumonia (principal); G93.41 Metabolic encephalopathy; J96.01 Acute respiratory failure with hypoxia; N18.6 End stage renal disease; J44.0 Chronic obstructive pulmonary disease with (acute) lower respiratory infection; I50.30 Unspecified diastolic (congestive) heart failure; I13.2 Hypertensive heart and chronic kidney disease with heart failure and with stage 5 chronic kidney disease, or end stage renal disease; Z66 Do not resuscitate; D63.8 Anemia in other chronic diseases classified elsewhere; I27.20 Pulmonary hypertension, unspecified; E11.22 Type 2 diabetes mellitus with diabetic chronic kidney disease; K52.9 Noninfective gastroenteritis and colitis, unspecified; I48.91 Unspecified atrial fibrillation; Z79.82 Long term (current) use of aspirin; Z79.899 Other long term (current) drug therapy; Z90.710 Acquired absence of both cervix and uterus; Z99.2 Dependence on renal dialysis
CPT/HCPCS: 36415; 71045; 76700; 80048; 80053; 80202; 83605; 83735; 83880; 84100; 84132; 84145; 84484; 85007; 85008; 85025; 85610; 86706; 87040; 87081; 87340; 92508; 92616; 93005; 93306; 94640; 94760; 94799; 97161; 97530; 99285; A4620; A4624; A6196; A6213; A6253; A6449; E1594; G0257; G0378; J1644; J1940; J2543; J3372; J3486; J7030; J7040; J7070